=== PATIENT | male | born 1995 | race Caucasian/White ===

== ENCOUNTER 2018-07-27 14:40 | Emergency (ER) | payer MEDICAID ==
[~2018-07-27] VITALS: Ht 160 cm; Wt 6.8 kg
[~2018-07-27 14:40] MED LIST: KEP500T PO; LORA-269 PO
[2018-07-27] MEDS ORDERED: KEP500T PO (15:49)
[2018-07-27] MEDS ORDERED: levetiracetam inj 500 MG in normal saline 1000ml 100 ML IV ONE (15:50)
[2018-07-27] MEDS ORDERED: ondansetron/PF 4mg/2ml inj IV ONE (15:50)
[2018-07-27] MEDS ORDERED: acetaminophen 325mg tablet PO ONE (17:15)
[2018-07-27 17:25] VITALS: BP 120/47
== END 2018-07-27 17:39 | disposition home or self-care (01) ==
LOC: ER 14:40
DX: S00.532A Contusion of oral cavity, initial encounter (principal); G40.909 Epilepsy, unspecified, not intractable, without status epilepticus; F12.90 Cannabis use, unspecified, uncomplicated; X58.XXXA Exposure to other specified factors, initial encounter; Y93.89 Activity, other specified; Y92.89 Other specified places as the place of occurrence of the external cause; Y99.8 Other external cause status
CPT/HCPCS: 96365; 96375; 99284; J1953; J2405; J7030

== ENCOUNTER 2018-09-10 04:44 | Emergency (ER) | payer MEDICAID ==
[~2018-09-10] VITALS: Ht 160 cm; Wt 59.0 kg
[2018-09-10] MEDS ORDERED: ondansetron 4mg rapidly disintigrating tab PO ONE (04:50)
[2018-09-10] MEDS ORDERED: levetiracetam 250mg tablet PO ONE (04:50)
[2018-09-10] MEDS ORDERED: KEP500T PO (04:53)
[2018-09-10] MEDS ORDERED: ONDA4TAB9 PO (04:53)
[2018-09-10 05:55] VITALS: BP 114/65
[2018-09-10] MEDS ORDERED: LEVE500T PO (17:08)
== END 2018-09-10 05:57 | disposition home or self-care (01) ==
LOC: ER 04:45
DX: G40.909 Epilepsy, unspecified, not intractable, without status epilepticus (principal); R11.10 Vomiting, unspecified; F12.90 Cannabis use, unspecified, uncomplicated; Z79.899 Other long term (current) drug therapy
CPT/HCPCS: 99283

== ENCOUNTER 2018-09-10 06:16 | Inpatient (IN) | payer MEDICAID ==
[~2018-09-10] VITALS: Ht 160 cm; Wt 56.0 kg
[~2018-09-10 06:16] MED LIST changes: +ONDA4TAB9 PO
[2018-09-10] MEDS ORDERED: LORazepam 2 mg/ml vial IM ONE (06:30)
[2018-09-10] MEDS ORDERED: LORazepam 2 mg/ml vial ONE (06:31)
[2018-09-10 07:02] LABS: BASOPHILS % (AUTO) 0 % (0-1); EOSINOPHILS # (AUTO) 0.3 X10'3 (0-0.9); EOSINOPHILS % (AUTO) 1.4 % (0-6); HEMATOCRIT 47.6 % (42.0-52.0); HEMOGLOBIN 15.8 g/dl (14.0-17.9); LYMPHOCYTES # (AUTO) 1.6 X10'3 (1.1-4.8); LYMPHOCYTES % (AUTO) 6.3 % (21-51); MEAN CORPUSCULAR HEMOGLOBIN 30.9 PG (27.0-31.0); MEAN CORPUSCULAR HGB CONC 33.1 % (33.0-36.5); MEAN CORPUSCULAR VOLUME 93.3 FL (78-98); MEAN PLATELET VOLUME 7.5 FL (7.4-10.4); MONOCYTES % (AUTO) 3.8 % (2-12); NEUTROPHILS # (AUTO) 22.6 X10'3 (1.8-7.7); NEUTROPHILS % (AUTO) 88.5 % (42-75); PLATELET COUNT 376 X10'3 (140-440); RED CELL DISTRIBUTION WIDTH 12.5 % (11.5-14.5)
[2018-09-10 07:05] LABS: WHITE BLOOD COUNT 25.5 X10'3 (4.5-11.0)
[2018-09-10 07:14] LABS: TOTAL CELLS COUNTED 100
[2018-09-10 07:15] LABS: PLATELET ESTIMATE NORMAL
[2018-09-10 07:18] LABS: ALANINE AMINOTRANSFERASE 77 U/L (12-78); ALBUMIN 4.3 G/DL (3.4-5.0); ALBUMIN/GLOBULIN RATIO 1.1 (1.1-1.5); ALKALINE PHOSPHATASE 120 IU/L (46-116); ANION GAP 24 (8-16); ASPARTATE AMINO TRANSFERASE 54 U/L (10-37); BILIRUBIN,TOTAL 0.1 MG/DL (0.1-1.0); BLOOD UREA NITROGEN 18 MG/DL (7-18); BUN/CREATININE RATIO 13.4 (5.4-32.0); CALCIUM 9.2 MG/DL (8.5-10.1); CHLORIDE 102 MMOL/L (99-107); CREATININE 1.34 MG/DL (0.60-1.10); GLUCOSE 144 MG/DL (70-104); POTASSIUM 4.2 MMOL/L (3.5-5.1); SODIUM 140 MMOL/L (135-145); TOTAL PROTEIN 8.2 G/DL (6.4-8.2); eGFR 65 ML/MIN
[2018-09-10 07:19] LABS: TOTAL CARBON DIOXIDE 14.3 MMOL/L (24-32)
[2018-09-10] MEDS ORDERED: levetiracetam inj 1,000 MG in normal saline 100ml IV soln 90 ML IV ONE (08:00)
[2018-09-10 09:41] LABS: CLARITY,URINE CLEAR (Clear); COLOR,URINE YELLOW (Yellow); GLUCOSE, URINE NEGATIVE (Neg); KETONES,URINE NEGATIVE (Neg); LEUKOCYTE ESTERASE ,URINE NEGATIVE (Neg); NITRITES, URINE NEGATIVE (Neg); OCCULT BLOOD,URINE SMALL (Neg); PH,URINE 5.5 (4.8-8.0); PROTEIN,URINE NEGATIVE (Neg); UROBILINOGEN,URINE 0.2 E.U/dL (0.2-1.0)
[2018-09-10 09:46] LABS: UA COLLECTION TYPE CLN CATCH MIDSTREAM
[2018-09-10 09:48] LABS: BACTERIA,URINE NONE SEEN /HPF (Neg); RBC,URINE 0-2 /HPF (0-2); SQUAMOUS EPITHELIAL CELL,UR FEW /LPF (FEW); WBC,URINE NONE SEEN /HPF (0-4)
[2018-09-10 09:49] LABS: URIC ACID CRYSTALS 3+ /HPF (NEGATIVE)
[2018-09-10 12:10] LABS: ALANINE AMINOTRANSFERASE 68 U/L (12-78); ALBUMIN 3.8 G/DL (3.4-5.0); ALBUMIN/GLOBULIN RATIO 1.2 (1.1-1.5); ALKALINE PHOSPHATASE 103 IU/L (46-116); ANION GAP 12 (8-16); ASPARTATE AMINO TRANSFERASE 39 U/L (10-37); BILIRUBIN,TOTAL 0.2 MG/DL (0.1-1.0); BLOOD UREA NITROGEN 16 MG/DL (7-18); BUN/CREATININE RATIO 15.5 (5.4-32.0); CHLORIDE 103 MMOL/L (99-107); CREATININE 1.03 MG/DL (0.60-1.10); GLUCOSE 100 MG/DL (70-104); POTASSIUM 4.2 MMOL/L (3.5-5.1); SODIUM 139 MMOL/L (135-145); TOTAL CARBON DIOXIDE 23.8 MMOL/L (24-32); TOTAL PROTEIN 7.1 G/DL (6.4-8.2); eGFR 89 ML/MIN
[2018-09-10 12:12] LABS: URINE AMPHETAMINE SCREEN NEGATIVE (Neg); URINE BARBITUATE SCREEN NEGATIVE (Neg); URINE BENZODIAZEPINES SCREEN NEGATIVE (Neg); URINE CANNABINOID SCREEN POSITIVE (Neg); URINE COCAINE SCREEN NEGATIVE (Neg); URINE METHADONE SCREEN NEGATIVE (Neg); URINE OPIATE SCREEN NEGATIVE (Neg); URINE PHENCYCLIDINE SCREEN NEGATIVE (Neg)
[2018-09-10] MEDS ORDERED: LORazepam 2 mg/ml vial IM PRN (12:25)
[2018-09-10] MEDS ORDERED: mag hydrox/Alum hydrox/simeth 30ml oral suspension PO PRN (12:25)
[2018-09-10] MEDS ORDERED: acetaminophen 325mg tablet PO PRN (12:25)
[2018-09-10 15:14] VITALS: BP 125/67
[2018-09-10] MEDS ORDERED: LEVE500T PO (17:08)
== END 2018-09-10 16:31 | disposition left against medical advice (07) | DRG 53 ==
LOC: ER 06:17 → ED HOLD 12:21
PROVIDERS: ADMIT Internal Medicine; ATTEND Internal Medicine
DX: G40.909 Epilepsy, unspecified, not intractable, without status epilepticus (principal); D72.829 Elevated white blood cell count, unspecified; F12.90 Cannabis use, unspecified, uncomplicated; R32 Unspecified urinary incontinence; Z53.21 Procedure and treatment not carried out due to patient leaving prior to being seen by health care provider; Z91.14 Patient's other noncompliance with medication regimen; Z91.19 Patient's noncompliance with other medical treatment and regimen; Z79.899 Other long term (current) drug therapy
CPT/HCPCS: 36415; 70450; 71045; 80053; 80305; 81001; 84146; 85025; 96365; 96372; 99285; G0378; J1953; J2060; J7030

== ENCOUNTER 2018-11-07 08:54 | Outpatient (CLI) | payer MEDICAID ==
[~2018-11-07 08:54] MED LIST changes: -KEP500T PO; +LEVE500T PO; -LORA-269 PO; -ONDA4TAB9 PO
== END 2018-11-07 23:59 | disposition home or self-care (01) ==
LOC: RAD 08:54
PROVIDERS: ATTEND Student in an Organized Health Care Education/Training Program
DX: G40.909 Epilepsy, unspecified, not intractable, without status epilepticus (principal); R22.1 Localized swelling, mass and lump, neck; Z87.891 Personal history of nicotine dependence
CPT/HCPCS: 95816

== ENCOUNTER 2019-06-29 09:35 | Emergency (ER) | payer MEDICAID ==
[~2019-06-29] VITALS: Ht 160 cm; Wt 59.1 kg
[2019-06-29 11:35] VITALS: BP 107/60
== END 2019-06-29 11:43 | disposition home or self-care (01) ==
LOC: ER 09:36
DX: G40.909 Epilepsy, unspecified, not intractable, without status epilepticus (principal); F12.90 Cannabis use, unspecified, uncomplicated
CPT/HCPCS: 99283